=== PATIENT | female | born 1930 | race Caucasian/White ===

== ENCOUNTER → 2017-01-22 | Outpatient (CLI) | payer OTHER, BC ==
[~2017-01-22] MED LIST: BENADRYL25 MG PO; CALTRATE-600 W1 EACH PO; LOSARTAN POTAS100 MG PO; MOBIC15 MG PO; NEURONTIN 300300 M1 PO; RESTASIS1 EACH OP; STOOL SOFTENER1 EAC2 PO; TOPROL XL25 MG PO; TRIAMTERENE-HC1 EAC1 PO; ULTRACET TABLE1 EACH PO; VITAMIN D-32000 UNIT PO; ZOCOR 10 MG TAB10 MG PO
== END ==
LOC: MRI 15:33
DX: M84.459A Pathological fracture, hip, unspecified, initial encounter for fracture (principal); M65.88 Other synovitis and tenosynovitis, other site; M25.451 Effusion, right hip

== ENCOUNTER 2017-04-18 06:13 | Inpatient (IN) | payer OTHER, BC ==
[2017-04-03 10:29] LABS: HEMATOCRIT 29.9 % (37.0-47.0); HEMOGLOBIN 10.2 gm/dL (12.0-15.0); MCH 32.6 pg (26.0-34.0); MCHC 34.2 g/dL (28.0-37.0); MCV 95.4 fL (80.0-100.0); RBC 3.13 mil/uL (4.20-5.00); RDW 13.2 % (10.5-14.5); WBC 6.8 thou/uL (4.0-11.0)
[2017-04-03 10:31] LABS: URINE BILIRUBIN NEGATIVE (Negative); URINE BLOOD NEGATIVE (Negative); URINE COLOR YELLOW; URINE GLUCOSE-RANDOM* NEGATIVE (Negative); URINE KETONES NEGATIVE (Negative); URINE LEUKOCYTES-REFLEX NEGATIVE (Negative); URINE PROTEIN (DIPSTICK) NEGATIVE (Negative); URINE UROBILINOGEN 0.2 E.U./dl (0.2-1.0)
[2017-04-03 10:37] LABS: ALBUMIN 3.7 g/dL (3.4-5.0); CALCIUM 9.5 mg/dL (8.5-10.1); CREATININE 1.3 mg/dL (0.6-1.0); POTASSIUM 3.9 mmol/L (3.5-5.1)
[2017-04-03 10:42] LABS: PROTIME 9.6 Seconds (9.3-11.4)
[2017-04-18] VITALS (7 sets, daily range): BP systolic 138–177; BP diastolic 74–94
[~2017-04-18] VITALS: Ht 144.8 cm; Wt 47.6 kg
--- NOTE | ~2017-04-18 | HC ---
[facility] [place] [address] CONSULTATION Name: AUNDREA ZIEGLER Room #: 401-I ADM IN ..#: [id number] Admission: 04/18/17 Attend Phys: Primo Youngblood MD Discharge: Date of : 31 Report #: [id number] THIS REPORT FOR: //name// CC: Primo Alcala DATE OF SERVICE: 04/18/2017 REASON FOR CONSULTATION: Management of medical problems. 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 Postop she is doing and feeling well with pain well controlled. She denies fevers, chills, nausea, vomiting, diarrhea, dizziness, headaches, skin rashes or other problems. PAST MEDICAL HISTORY: Includes 1. Hypertension. 2. Hyperlipidemia. 3. Anemia. 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 She denies any history of tobacco use. FAMILY HISTORY: Not relevant in this extremely elderly female. REVIEW OF SYSTEMS: Twelve-point review of systems performed, negative except as mentioned in history of present illness. PHYSICAL EXAMINATION: VITAL SIGNS: When seen today, the patient's vitals afebrile, pulse 93, respiration rate of 14, O2 sat 99 on room air, blood pressure 138/90. GENERAL: Awake, alert, no acute distress. HEENT: Unremarkable. NECK: No JVD or thyromegaly. CARDIOVASCULAR: S1 and S2 present, regular. RESPIRATORY: Air entry present bilaterally. ABDOMEN: Soft, nontender, nondistended. EXTREMITIES: Right hip with drain in place and dressed. NEUROLOGIC: Awake, alert. No obvious focal findings. SKIN: Unremarkable. No rash or lesions. LABS AND INVESTIGATIONS: Preop reviewed, notable for mildly elevated creatinine of 1.3. Sodium mildly low at 131, anemia of 10.2. ASSESSMENT AND PLAN: This is an 86-year-old female seen in consultation postop [address] [address] CONSULTATION Name: AUNDREA ZIEGLER Room #: 401-I ADM IN [facility]#: [id number] Admission: 04/18/17 Attend Phys: Primo Youngblood MD Discharge: Date of : 31 Report #: [id number] after hip replacement. PLAN: 1. Hip replacement management per orthopedic surgery. We will defer pain management and deep venous thrombosis prophylaxis to orthopedic surgery. 2. Hypertension. Resume her beta [place]. We will clarify her other home meds and await postop stability prior to resumption. 3. Hyperlipidemia. It appears her statin is discontinued. We will clarify the same. Thanks for this consultation, appreciate the opportunity to be involved in the care of this patient. <ELECTRONICALLY SIGNED> By: Dwaine Glasgow MD 04/19/17 1218 1633 0020 Dwaine Glasgow MD /nt
--- NOTE | ~2017-04-18 | O ---
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 PROCEDURE: Right hip hemiarthroplasty. SURGEON: Priom Youngblood M.D. INDICATIONS: This frail, but still alert and active 86-year-old female complains of progressive right hip pain. Clinical exam and x-ray studies confirm avascular necrosis of the femoral head with collapse and deformity. The acetabulum appears to be in good condition. She has tried conservative measures as we have considered her advanced age and some other general medical issues. At this point; however, the patient and her family feels she simply cannot continue with level of discomfort she is currently experiencing and has difficulty with ambulation even using a walker. Given this, she has elected to go ahead with hip arthroplasty. It appears to me that the vast majority of the problem is collapse of the femoral head and there is not much change or damage to the acetabulum. Given this, I felt a hemiarthroplasty may be the best and safest approach given her age and limited activity. DESCRIPTION OF PROCEDURE: The patient was taken to the operating room where she is placed under general anesthesia. Prophylactic intravenous antibiotics were administered. She was turned to the left lateral decubitus position. The right hip, thigh and leg were meticulously prepped and draped. A slightly curving posterolateral skin incision was made and carried through fascia, exposing the posterior aspect of the hip joint. The short external rotators and capsule were taken down and tagged with several #1 Tevdek sutures. The hip was dislocated. Marked degenerative change of the femoral head was noted with severe deformity and significant collapse and fragmentation. A femoral neck osteotomy was performed. 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 There was no evidence of fracture. The acetabulum was carefully inspected and actually appears to be in fairly good shape. The labrum was debrided as there was some degenerative tearing there. The cartilage surface of the acetabulum; however, was intact without much degenerative damage. Given this, I felt a hemiarthroplasty was [address] [address] OPERATIVE REPORT Name: KARLIEAUNDREA M Room #: 401-I [facility] IN .R.#: [id number] Admission: 04/18/17 Attend Phys: Primo Youngblood MD Discharge: Date of : 31 Report #: [id number] probably the best and safest approach for this elderly patient. Attention was directed to the femoral canal, which was opened with reamers and hand broaches. The Wallace and Nephew hip system was utilized and the size 10 broach fit appropriately. A trial reduction was performed and the hip seemed best suited for a 43-mm bipolar head and a +0 neck length with a high offset neck angle. This resulted in satisfactory alignment, range of motion and stability. The trial components were removed. A cement restrictor was placed in the canal. Methyl methacrylate cement was mixed and injected into the canal. The Wallace and Nephew size 10 collared cement stem was then inserted, placing this in about 20 degrees of anteversion. Gentle pressure was held as the cement hardened and the stem seemed to be stable and in good position. A trial reduction was again performed and the 43-mm bipolar head with a +0 neck length seemed to fit appropriately and resulted in good alignment, range of motion, stability and leg length. The trial head was removed and a bipolar 43-mm head with a +0 neck length was then impacted on to the Mcknight taper and the hip was reduced and appeared to be stable alignment, range of motion, stability and leg length seemed to be satisfactory. The entire wound was copiously irrigated. Good hemostasis was established. The capsule and short external rotators were repaired with the #1 Tevdek sutures passed through small drill holes in the greater trochanter. A single Hemovac was left in the wound exiting through a separate stab incision. The fascia was closed with multiple #1 Vicryl sutures. The subcutaneous tissues were closed with 0 Monocryl, and the skin was closed with skin rik. A sterile dressing was applied. The patient was awakened and returned to the recovery room in good condition. <ELECTRONICALLY SIGNED> By: Primo Youngblood MD 04/19/17 0932 1259 1632 Primo Youngblood MD /nt
[~2017-04-18 06:13] MED LIST changes: +BENTYL 10 MG CA10 M1 PO; +DICLOFENAC SODI75 MG PO; +PRILOSEC 20 MG20 MG PO; +STOOL SOFTENER100 MG PO
[2017-04-19 00:47] VITALS: BP 166/85
[2017-04-19 03:02] VITALS: BP 167/74
[2017-04-19 03:57] LABS: HEMATOCRIT 25.6 % (37.0-47.0); HEMOGLOBIN 8.8 gm/dL (12.0-15.0); MCH 33.4 pg (26.0-34.0); MCHC 34.3 g/dL (28.0-37.0); MCV 97.5 fL (80.0-100.0); RBC 2.62 mil/uL (4.20-5.00); RDW 12.9 % (10.5-14.5); WBC 10.5 thou/uL (4.0-11.0)
[2017-04-19 04:07] LABS: POTASSIUM 4.1 mmol/L (3.5-5.1)
[2017-04-19 07:10] VITALS: BP 172/84
[2017-04-19] MEDS ORDERED: LOPRESSOR25 PO (14:41)
[2017-04-19 15:40] VITALS: BP 172/84
[2017-04-19 20:00] VITALS: BP 121/61
[2017-04-20 04:00] VITALS: BP 151/97
[2017-04-20 06:43] LABS: HEMATOCRIT 24.3 % (37.0-47.0); HEMOGLOBIN 8.2 gm/dL (12.0-15.0); MCH 32.8 pg (26.0-34.0); MCHC 33.9 g/dL (28.0-37.0); MCV 96.6 fL (80.0-100.0); RBC 2.52 mil/uL (4.20-5.00); RDW 13.3 % (10.5-14.5); WBC 8.1 thou/uL (4.0-11.0)
[2017-04-20 07:06] VITALS: BP 116/65
[2017-04-20 16:05] VITALS: BP 154/51
[2017-04-20 17:43] VITALS: BP 122/65
[2017-04-20 20:00] VITALS: BP 139/75
[2017-04-21 05:31] LABS: HEMATOCRIT 20.4 % (37.0-47.0); HEMOGLOBIN 7.2 gm/dL (12.0-15.0); MCH 33.2 pg (26.0-34.0); MCV 94.9 fL (80.0-100.0); RBC 2.15 mil/uL (4.20-5.00); RDW 12.8 % (10.5-14.5); WBC 8.7 thou/uL (4.0-11.0)
[2017-04-21 06:00] VITALS: BP 153/92
[2017-04-21 08:56] VITALS: BP 139/82
[2017-04-21 15:04] VITALS: BP 107/78; BP 120/57
[2017-04-21 20:00] VITALS: BP 106/66
[2017-04-22 04:56] LABS: HEMATOCRIT 27.1 % (37.0-47.0); MCH 36.3 pg (26.0-34.0); MCHC 36.7 g/dL (28.0-37.0); MCV 98.9 fL (80.0-100.0); RBC 2.74 mil/uL (4.20-5.00); RDW 14.2 % (10.5-14.5); WBC 9.9 thou/uL (4.0-11.0)
[2017-04-22] MEDS ORDERED: ASPIRIN EC325 M1 PO (10:35)
[2017-04-22 12:02] VITALS: BP 172/84
[2017-04-22 13:34] VITALS: BP 172/84
[2017-04-22 14:17] VITALS: BP 172/84
== END 2017-04-22 15:50 | disposition home health service (06) | DRG 470 ==
LOC: PRE 06:13 → 4N 07:10 → TBA 07:10 → PRE 11:34 → 4N 14:06
PROVIDERS: Hospitalist; Orthopaedic Surgery
PROC: 0SRR039 Replacement of Right Hip Joint, Femoral Surface with Ceramic Synthetic Substitute, Cemented, Open Approach (ICD-10-PCS; principal; 2017-04-18)
PROC: 30233N1 Transfusion of Nonautologous Red Blood Cells into Peripheral Vein, Percutaneous Approach (ICD-10-PCS; 2017-04-21)
DX: M16.11 Unilateral primary osteoarthritis, right hip (principal); M87.851 Other osteonecrosis, right femur; E87.1 Hypo-osmolality and hyponatremia; D62 Acute posthemorrhagic anemia; E87.5 Hyperkalemia; I10 Essential (primary) hypertension; Z88.8 Allergy status to other drugs, medicaments and biological substances; Z88.2 Allergy status to sulfonamides
CPT/HCPCS: 10790; 50010; 50101; 50382; 50414; 51057; 51130; 51225; 51412; 53000; 55381; 56521; 56525; 56527; 62110; 62900; 64031; 70005

== ENCOUNTER → 2019-10-21 | Outpatient (CLI) | payer OTHER ==
[~2019-10-21] MED LIST changes: +ASPIRIN EC325 M1 PO; +LOPRESSOR25 PO
== END ==
LOC: SJCVC 11:33
DX: R94.31 Abnormal electrocardiogram [ECG] [EKG] (principal); I21.09 ST elevation (STEMI) myocardial infarction involving other coronary artery of anterior wall; I10 Essential (primary) hypertension; E78.5 Hyperlipidemia, unspecified; I12.9 Hypertensive chronic kidney disease with stage 1 through stage 4 chronic kidney disease, or unspecified chronic kidney disease; N18.2 Chronic kidney disease, stage 2 (mild); R23.1 Pallor; I73.00 Raynaud's syndrome without gangrene; Z90.710 Acquired absence of both cervix and uterus; Z79.82 Long term (current) use of aspirin; Z79.899 Other long term (current) drug therapy

== ENCOUNTER 2020-02-10 18:54 | Emergency (ER) | payer OTHER ==
[~2020-02-10] VITALS: Ht 147.3 cm; Wt 49.9 kg
[2020-02-10] MEDS ORDERED: CALTRATE-600 W1 EACH PO (19:05)
[2020-02-10] MEDS ORDERED: BENADRYL25 MG PO (19:06)
[2020-02-10] MEDS ORDERED: DULCOLAX STOOL100 M1 PO (19:06)
[2020-02-10] MEDS ORDERED: MELOXICAM7.5 MG PO (19:07)
[2020-02-10 19:59] LABS: URINE BILIRUBIN NEGATIVE (Negative); URINE BLOOD NEGATIVE (Negative); URINE CLARITY CLEAR; URINE COLOR YELLOW; URINE GLUCOSE-RANDOM* NEGATIVE (Negative); URINE KETONES NEGATIVE (Negative); URINE LEUKOCYTES-REFLEX NEGATIVE (Negative); URINE NITRITE-REFLEX NEGATIVE (Negative); URINE PROTEIN (DIPSTICK) NEGATIVE (Negative); URINE UROBILINOGEN 0.2 E.U./dl (0.2-1.0)
[2020-02-10 20:03] LABS: CALCIUM 8.5 mg/dL (8.5-10.1); CREATININE 1.3 mg/dL (0.6-1.0); POTASSIUM 4.9 mmol/L (3.5-5.1)
[2020-02-10] MEDS ORDERED: OMEPRAZOLE 20 M20 M1 PO (20:05)
[2020-02-10] MEDS ORDERED: NF (20:07)
[2020-02-10 20:09] LABS: ALBUMIN 3.7 g/dL (3.4-5.0); TOTAL BILIRUBIN 0.5 mg/dL (0.2-1.0); TOTAL PROTEIN 7.1 g/dL (6.4-8.2)
[2020-02-10 20:31] LABS: ABSOLUTE NEUTROPHILS 3.9 thou/uL (1.4-8.2); BASOPHILS 0.6 % (0.0-2.0); EOSINOPHILS 0.5 % (0.0-3.0); HEMATOCRIT 30.7 % (37.0-47.0); HEMOGLOBIN 10.6 gm/dL (12.0-15.0); LYMPHOCYTES 37.6 % (24.0-44.0); MCH 33.9 pg (26.0-34.0); MCHC 34.7 g/dL (28.0-37.0); MCV 97.7 fL (80.0-100.0); MONOCYTES 9.5 % (1.0-8.0); PLATELET COUNT 167 thou/uL (150-400); POLYS 51.8 % (36.0-66.0); RBC 3.14 mil/uL (4.20-5.00); RDW 13.2 % (10.5-14.5); WBC 7.6 thou/uL (4.0-11.0)
[2020-02-10 20:49] VITALS: BP 180/91
--- NOTE | 2020-02-11 07:42 | EKG ---
[facility] [address] ELECTROCARDIOGRAM REPORT Name: AUNDREA ZIEGLER Room #: DEP [facility].#: [id number] Admission: 02/10/20 Attend Phys: Discharge: 02/10/20 Date of : 31 Report #: [id number] THIS REPORT FOR: cc: Des Alcala MD, Neal A. MD Lundgren,Constantin West MD [facility] ~ THIS REPORT FOR: //name// [facility] ED Test Date: 2020-02-10 Test Time: 20:00:25 Pat Name: AUNDREA ZIEGLER Department: Room: Gender: Management Rep: [facility] : 1930 Requested By: Jorje Garcia Order Number: [id number] MD: Constantin Ojeda Measurements Intervals [place] Rate: 76 P: 26 OR: 180 QRS: -20 QRSD: 86 T: 3 QT: 373 QTc: 420 Interpretive Statements Sinus rhythm Inferior infarct, old Poor R wave progression No previous ECG available for comparison Electronically Signed On 02-11-2020 7:39:13 CDT by Constantin Ojeda [email or web address] <ELECTRONICALLY SIGNED> By: Constantin Ojeda MD, [facility] 02/11/20 0739 99 99 Constantin Ojeda MD, [facility] /EPI
== END 2020-02-10 20:50 | disposition home or self-care (01) ==
LOC: ER 18:54
PROVIDERS: Emergency Medicine
DX: I10 Essential (primary) hypertension (principal); E78.00 Pure hypercholesterolemia, unspecified; K21.9 Gastro-esophageal reflux disease without esophagitis; Z90.711 Acquired absence of uterus with remaining cervical stump; Z79.899 Other long term (current) drug therapy; Z88.8 Allergy status to other drugs, medicaments and biological substances; Z88.2 Allergy status to sulfonamides; Z88.6 Allergy status to analgesic agent

== ENCOUNTER → 2020-05-05 | Outpatient (CLI) | payer OTHER ==
[~2020-05-05] MED LIST changes: +DULCOLAX STOOL100 M1 PO; +MELOXICAM7.5 MG PO; +NF; +OMEPRAZOLE 20 M20 M1 PO
== END ==
LOC: SJCVC 13:04
PROVIDERS: ATTEND Internal Medicine
DX: R94.31 Abnormal electrocardiogram [ECG] [EKG] (principal); I12.9 Hypertensive chronic kidney disease with stage 1 through stage 4 chronic kidney disease, or unspecified chronic kidney disease; N18.2 Chronic kidney disease, stage 2 (mild); E78.5 Hyperlipidemia, unspecified; R23.1 Pallor; I73.00 Raynaud's syndrome without gangrene; Z79.899 Other long term (current) drug therapy

== ENCOUNTER 2020-08-17 10:37 | Emergency (ER) | payer OTHER ==
[~2020-08-17] VITALS: Ht 144.8 cm; Wt 48.5 kg
[2020-08-17 12:29] LABS: ABSOLUTE NEUTROPHILS 3.7 thou/uL (1.4-8.2); BASOPHILS 0.6 % (0.0-2.0); EOSINOPHILS 0.3 % (0.0-3.0); HEMATOCRIT 30.7 % (37.0-47.0); HEMOGLOBIN 10.8 gm/dL (12.0-15.0); LYMPHOCYTES 26.7 % (24.0-44.0); MCH 34.9 pg (26.0-34.0); MCHC 35.2 g/dL (28.0-37.0); MCV 99.3 fL (80.0-100.0); PLATELET COUNT 204 thou/uL (150-400); POLYS 64.4 % (36.0-66.0); RBC 3.09 mil/uL (4.20-5.00); RDW 12.6 % (10.5-14.5); WBC 5.7 thou/uL (4.0-11.0)
[2020-08-17 12:32] LABS: URINE BILIRUBIN NEGATIVE (Negative); URINE BLOOD NEGATIVE (Negative); URINE CLARITY CLEAR; URINE COLOR YELLOW; URINE GLUCOSE-RANDOM* NEGATIVE (Negative); URINE KETONES NEGATIVE (Negative); URINE LEUKOCYTES-REFLEX NEGATIVE (Negative); URINE PROTEIN (DIPSTICK) NEGATIVE (Negative); URINE UROBILINOGEN 0.2 E.U./dl (0.2-1.0)
[2020-08-17 12:35] LABS: URINE NITRITE-REFLEX POSITIVE (Negative)
[2020-08-17 12:41] LABS: ANION GAP 10 mmol/L (7-16); BUN 29 mg/dL (7-18); CALCIUM 9.6 mg/dL (8.5-10.1); CHLORIDE 85 mmol/L (98-107); CO2 23 mmol/L (21-32); CREATININE 1.3 mg/dL (0.6-1.0); GLUCOSE 106 mg/dL (74-106); POTASSIUM 4.3 mmol/L (3.5-5.1); TROPONIN-I <0.06 ng/mL (<0.06)
[2020-08-17 12:48] LABS: SODIUM 118 mmol/L (136-145)
[2020-08-17 12:55] LABS: BACTERIA-REFLEX 1-9 Few /HPF (None Seen); CASTS None Seen /LPF (None Seen); CRYSTALS None Seen /LPF (None Seen); SQUAMOUS 0-3 Few /LPF (0-3)
[2020-08-17 12:56] LABS: URINE RBC None Seen /HPF (0-2); URINE WBC-REFLEX 0-5 Rare /HPF (0-5)
--- NOTE | 2020-08-17 14:18 | EKG ---
[place] [address] [facility] [place] [address] ELECTROCARDIOGRAM REPORT Name: AUNDREA ZIEGLER Room #: REG DEMETRIUS Lopez#: [id number] Admission: 08/17/20 Attend Phys: Discharge: Date of : 31 Report #: [id number] [facility] ED Test Date: 2020-08-17 Test Time: 12:41:00 Pat Name: AUNDREA ZIEGLER Department: Room: Gender: F [employer]ar[employer] Supervisor: ZEPEDA : 1930 Requested By: Kwame Ross Order Number: [id number] MD: Chadwick Amaya Measurements Intervals [place] Rate: 67 P: 15 [place]: 201 QRS: -20 QRSD: 88 T: 3 QT: 413 QTc: 436 Interpretive Statements Sinus rhythm Inferior infarct, old Consider anterior infarct Compared to ECG 02/10/2020 20:00:25 Poor R-wave progression no longer present Myocardial infarct finding still present Electronically Signed On 08-17-2020 14:18:33 NEWS VIDEOGRAPHER by Chadwick Amaya [email or web address] <ELECTRONICALLY SIGNED> By: Chadwick Amaya MD, [facility] 08/17/20 1418 1241 1241 Chadwick Amaya MD, FACC /EPI
[2020-08-17 15:13] VITALS: BP 109/89
== END 2020-08-17 15:00 | disposition home or self-care (01) ==
LOC: ER 10:37
PROVIDERS: Emergency Medicine
DX: E87.1 Hypo-osmolality and hyponatremia (principal); I10 Essential (primary) hypertension; E78.00 Pure hypercholesterolemia, unspecified; Z88.2 Allergy status to sulfonamides; Z88.1 Allergy status to other antibiotic agents; Z88.5 Allergy status to narcotic agent; Z79.899 Other long term (current) drug therapy; Z90.710 Acquired absence of both cervix and uterus

== ENCOUNTER → 2020-12-06 | Outpatient (CLI) | payer OTHER | LOC: SJCVC 11:32 | PROVIDERS: ATTEND Internal Medicine | DX: R94.31 Abnormal electrocardiogram [ECG] [EKG] (principal); I49.9 Cardiac arrhythmia, unspecified; I12.9 Hypertensive chronic kidney disease with stage 1 through stage 4 chronic kidney disease, or unspecified chronic kidney disease; N18.2 Chronic kidney disease, stage 2 (mild); E78.5 Hyperlipidemia, unspecified; I73.00 Raynaud's syndrome without gangrene; Z88.1 Allergy status to other antibiotic agents; Z88.2 Allergy status to sulfonamides; Z79.899 Other long term (current) drug therapy ==

== ENCOUNTER 2021-09-14 19:24 | Emergency (ER) | payer OTHER ==
[~2021-09-14] VITALS: Ht 152.4 cm; Wt 49.9 kg
[2021-09-14 20:16] LABS: CALCIUM 8.7 mg/dL (8.5-10.1); CREATININE 1.5 mg/dL (0.6-1.0); POTASSIUM 4.8 mmol/L (3.5-5.1)
[2021-09-14 20:33] LABS: TOTAL BILIRUBIN 0.7 mg/dL (0.2-1.0); TOTAL PROTEIN 6.2 g/dL (6.4-8.2)
[2021-09-14 21:11] LABS: HEMATOCRIT 29.2 % (37.0-47.0); HEMOGLOBIN 9.6 gm/dL (12.0-15.0); MCHC 32.9 g/dL (28.0-37.0); MCV 97.3 fL (80.0-100.0); PLATELET COUNT 177 thou/uL (150-400); WBC 5.7 thou/uL (4.0-11.0)
[2021-09-14 21:20] LABS: URINE BILIRUBIN NEGATIVE (Negative); URINE BLOOD NEGATIVE (Negative); URINE CLARITY CLEAR; URINE COLOR YELLOW; URINE GLUCOSE-RANDOM* NEGATIVE (Negative); URINE KETONES NEGATIVE (Negative); URINE LEUKOCYTES-REFLEX NEGATIVE (Negative); URINE NITRITE-REFLEX NEGATIVE (Negative); URINE PROTEIN (DIPSTICK) NEGATIVE (Negative); URINE SPECIFIC GRAVITY <= 1.005 (1.005-1.035); URINE UROBILINOGEN 0.2 E.U./dl (0.2-1.0)
[2021-09-14 22:23] VITALS: BP 138/71
--- NOTE | 2021-09-16 10:51 | EKG ---
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: alysia : 1930 Requested By: Charley Balderrama Order Number: [id number] MD: Nash Valerio Measurements Intervals [place] Rate: 71 P: 12 [place]: 192 QRS: -28 QRSD: 85 T: -2 QT: 387 QTc: 421 Interpretive Statements Sinus rhythm Inferior infarct, old Anterior infarct, old Baseline wander in lead(s) I,III,aVL,V1 Compared to ECG 08/17/2020 12:41:00 No significant changes Electronically Signed On 09-16-2021 10:51:12 [employer]BER SECURITY CONSULTANT by Nash Valerio [email or web address] <ELECTRONICALLY SIGNED> By: Nash Valerio MD 09/16/21 1051 04 04 Nash Valerio MD /FARHEEN
== END 2021-09-14 23:07 | disposition home or self-care (01) ==
LOC: ER 19:24
PROVIDERS: Physician Assistant
DX: R53.1 Weakness (principal); D64.9 Anemia, unspecified; I10 Essential (primary) hypertension; E78.00 Pure hypercholesterolemia, unspecified; K21.9 Gastro-esophageal reflux disease without esophagitis; Z90.710 Acquired absence of both cervix and uterus; Z79.899 Other long term (current) drug therapy; Z79.891 Long term (current) use of opiate analgesic; Z79.1 Long term (current) use of non-steroidal anti-inflammatories (NSAID); Z88.2 Allergy status to sulfonamides; Z88.6 Allergy status to analgesic agent; Z88.8 Allergy status to other drugs, medicaments and biological substances